=== PATIENT | female | born 1985 | race Caucasian/White ===

== ENCOUNTER 2021-09-19 19:26 | Emergency (ER) | payer MEDICAID ==
[~2021-09-19] VITALS: Ht 165.1 cm; Wt 90.7 kg
[2021-09-19 19:53] VITALS: BP 138/94
== END 2021-09-19 21:10 | disposition left against medical advice (07) ==
LOC: ER 19:26 → EDBD 19:26 → ER 21:10
DX: F91.9 Conduct disorder, unspecified (principal); Z53.21 Procedure and treatment not carried out due to patient leaving prior to being seen by health care provider